=== PATIENT | female | born 1950 | race Caucasian/White ===

== ENCOUNTER 2020-08-09 11:15 | Outpatient (CLI) | payer MEDICARE, SELFPAY ==
--- NOTE | ~2020-08-09 | XR_ITS ---
XR sacrum coccyx min 2V 08/09/2020 11:49 Indication: Adjustment of neural pacemaker Procedure: 4 views of the sacrum/coccyx Comparison: No prior studies for comparison. Findings: There is a neural stimulator lead extending into the pelvis via a right transsacral approac h. There are 2 screws transfixing the sacrum and ilium bilaterally. Sacral foramen are symmetric. The re are mild degenerative changes of the hips and pubic symphysis. Impression: 1: Neural stimulator lead identified extending into the pelvis via right transsacral approach. Reviewed, dictated and finalized at location B. [employer] Impression: 1: Neural stimulator lead identified extending into the pelvis via right transs acral approach.
== END 2020-08-09 11:16 | disposition home or self-care (01) ==
PROVIDERS: Visit Provider Urology
DX: Z46.2 Encounter for fitting and adjustment of other devices related to nervous system and special senses (principal)
CPT/HCPCS: 72220

== ENCOUNTER 2020-08-27 01:57 | Outpatient (CLI) | payer MEDICARE, SELFPAY ==
[2020-08-27 19:59] LABS: SARS-CoV-2 RNA PCR Negative
== END 2020-08-27 01:58 | disposition home or self-care (01) ==
LOC: ANHCOVIDDT 01:57
PROVIDERS: Visit Provider Urology
DX: Z01.812 Encounter for preprocedural laboratory examination (principal); Z20.828 Contact with and (suspected) exposure to other viral communicable diseases
CPT/HCPCS: 87635; C9803; U0003

== ENCOUNTER 2020-08-30 02:22 | Day surgery (SDC) | payer MEDICARE, SELFPAY ==
[2020-08-23 09:36] VITALS: BMI 33.7
--- NOTE | 2020-08-27 14:30 | WPDANESEPPF ---
Anes - Initial Pre Proc Eval Procedure: Operation Date: 08/30/20 12:00 Proposed Procedures p Cystoscopy, Steroid Injection - Maurice Smith MD Date/Time: 08/27/20 14:30 Surgeon: Maurice Smith MD Pre Op Diagnosis: overactive bladder Patient Data Age: 69 Gender: F Height: 1.63 m Weight: 89 kg Allergies Allergy/AdvReac Type Severity Reaction Status Date / Time ampicillin Allergy Hives Verified 08/23/20 09:27 Home Medications Medication Instructions Recorded Confirmed Type atorvastatin 10 mg PO DAILY 08/23/20 08/23/20 History bupropion HCl 100 mg PO QAM 08/23/20 08/23/20 History famotidine 20 mg PO BID 08/23/20 08/23/20 History hydrocodone-acetaminophen 1 tablet PO Q6-8H PRN 08/23/20 08/23/20 History oxybutynin chloride 10 mg PO DAILY 08/23/20 08/23/20 History propranolol 80 mg PO BID 08/23/20 08/23/20 History rivaroxaban [Xarelto] 20 mg PO HS 08/23/20 08/23/20 History Patient hx anesthesia problems: none Family hx anesthesia problems: none PMFSH Past Medical History Medical History (Updated 08/28/20 @ 16:01 by Maurice Smith MD) Anticoagulant long-term use Anxiety CVA (cerebral vascular accident) s/p back surgery 2013, mild weakness right side Depression Hyperlipidemia Hypertension Psoriasis Scoliosis Surgical History Surgical History (Updated 08/27/20 @ 14:32 by Jann Sanches DO) History of cholecystectomy Social History Social History Smoking status: Never smoker Substance use: never Living arrangements: with family Additional living arrangements comments: Spiritual care concerns: No Anes - Eval Final PreProcedure Day of Procedure 08/27/20 14:30 Patient weight: obese Heart: regular rate and rhythm Lungs: clear to auscultation and normal air movement Airway: Mallampati scale class II Neurological: alert and oriented Last oral intake: >/= 8 hours ASA classification: III Emergent: no Anesthetic plan: proceed Anesthesia type and monitoring: general GIVS and standard monitoring Informed Consent: The patient's anesthetic plan and its attendant risks and benefits were discussed with the patient/family/POA. Questions were solicited and answers provided to the satisfaction of the patient/family/POA.
--- NOTE | 2020-08-28 15:59 | PM.IMHP ---
H&P: HPI History of Present Illness Date/Time: 08/28/20 15:59 Chief Complaint: Hunner Ulcer Narrative: Nilda Avila is a 69 year old female with Hunner ulcer Review of Systems Review of Systems: All systems reviewed & are unremarkable except as noted in HPI and below PMFSH Past Medical History Medical History (Updated 08/28/20 @ 16:01 by Maurice Smith MD) Anticoagulant long-term use Anxiety CVA (cerebral vascular accident) s/p back surgery 2013, mild weakness right side Depression Hyperlipidemia Hypertension Psoriasis Scoliosis Surgical History Surgical History (Updated 08/27/20 @ 14:32 by Jann Sanches DO) History of cholecystectomy Social History Social History Smoking status: Never smoker Substance use: never Additional living arrangements comments: Spiritual care concerns: No Meds Home Medications and Allergies Home Medications Medication Instructions Recorded Confirmed Type atorvastatin 10 mg PO DAILY 08/23/20 08/23/20 History bupropion HCl 100 mg PO QAM 08/23/20 08/23/20 History famotidine 20 mg PO BID 08/23/20 08/23/20 History hydrocodone-acetaminophen 1 tablet PO Q6-8H PRN 08/23/20 08/23/20 History oxybutynin chloride 10 mg PO DAILY 08/23/20 08/23/20 History propranolol 80 mg PO BID 08/23/20 08/23/20 History rivaroxaban [Xarelto] 20 mg PO HS 08/23/20 08/23/20 History Allergies Allergy/AdvReac Type Severity Reaction Status Date / Time ampicillin Allergy Hives Verified 08/23/20 09:27 Exam Const: General: cooperative and healthy appearing Eyes: General: appearance normal, both eyes and all related structures Neck: Neck: normal visual inspection Resp: Effort & Inspection: normal respiratory effort and able to speak in complete sentences GI: Inspection: normal to inspection Skin: General skin exam: normal color Assessment and Plan Assessment and plan (1) 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
[2020-08-30 09:57] VITALS: BP 112/68; PULSE 75; RESP 20; TEMP 36.5; O2SAT 100
--- NOTE | 2020-08-30 10:26 | WPDHPUPDATE1 ---
History and Physical Update Update Date/Time: 08/30/20 10:26 History and Physical has been reviewed, including an updated exam of the patient. There are NO changes in the patient's condition. Risks, benefits, and alternatives have been discussed and questions answered. Patient agrees to proceed with procedure.
[2020-08-30] MEDS: LACTATED RINGERS 1,000 ML 30 ML IV CONT (10:50)
[2020-08-30] MEDS: ceFAZolin 2 GM/D5W 50 ML 2 GM/50 ML BAG IVPB (11:42)
[2020-08-30] MEDS: LIDOCAINE HCL 2% GEL UROJET 10 ML PKG MUCOUS MEM (12:00)
[2020-08-30 12:05] VITALS: BP 122/62; PULSE 72; RESP 20
--- NOTE | 2020-08-30 12:05 | PM.PROC ---
Procedure Note - Detailed Date of procedure: 08/30/20 Pre-op diagnosis: overactive bladder Hunner's ulcer Post-op diagnosis: same Procedure performed: Cystoscopy with bladder biopsy and injection of steroid Description of procedure: After anesthesia was induced the patient was correctly identified and informed consent was obtained. They are placed in the dorsal lithotomy position. There prepped and draped in a sterile fashion. A time-out performed. I performed cystoscopy. There were areas of Hunner's ulceration inside the bladder. This was biopsied in generously fulgurated. I then injected Kenalog at a dose of 40 milligrams/mL. I injected 5 cc total. There was minimal bleeding from the injection sites. The bladder was examined under low insufflation pressures and there was no active bleeding. The bladder was drained. The awakened and transferred to the PACU in stable condition. Implants: None Anesthesia: MAC Surgeon: Maurice Smith MD Drains: No Packing: No Pathology: yes (Bladder biopsy) Complications: No immediate complications Condition: stable Disposition: PACU
[2020-08-30 12:30] VITALS: BP 133/73; PULSE 71; RESP 20
[2020-08-30 12:50] VITALS: BP 133/71; PULSE 69; RESP 12
== END 2020-08-30 13:06 | disposition home or self-care (01) ==
PROVIDERS: Visit Provider Urology
PROC: 3E0K8GC Introduction of Other Therapeutic Substance into Genitourinary Tract, Via Natural or Artificial Opening Endoscopic (ICD-10-PCS; CPT 52204; principal; 2020-08-30 12:00)
DX: N32.81 Overactive bladder (principal); N30.10 Interstitial cystitis (chronic) without hematuria; N30.00 Acute cystitis without hematuria; I10 Essential (primary) hypertension; E78.5 Hyperlipidemia, unspecified; L40.9 Psoriasis, unspecified; F41.8 Other specified anxiety disorders; Z79.01 Long term (current) use of anticoagulants; Z86.73 Personal history of transient ischemic attack (TIA), and cerebral infarction without residual deficits; E66.9 Obesity, unspecified; Z68.34 Body mass index [BMI] 34.0-34.9, adult
CPT/HCPCS: 52204; 52283; 88305; A9270; J0690; J2250; J2704; J3010; J3301; J7120

== ENCOUNTER → 2021-02-22 01:13 | Outpatient (CLI) | payer MEDICARE, SELFPAY ==
[2021-02-22 17:24] LABS: SARS-CoV-2 RNA PCR Negative
== END ==
PROVIDERS: Visit Provider Urology
DX: Z01.812 Encounter for preprocedural laboratory examination (principal); Z20.822 Contact with and (suspected) exposure to COVID-19
CPT/HCPCS: C9803; U0003; U0005

== ENCOUNTER 2021-02-25 00:49 | Day surgery (SDC) | payer MEDICARE, SELFPAY ==
[2021-02-15 14:05] VITALS: BMI 34.4
--- NOTE | 2021-02-19 10:21 | PM.IMHP ---
H&P: HPI History of Present Illness Date/Time: 02/19/21 10:21 70-year-old with Hunner's ulcer variety interstitial cystitis Chief Complaint: Hunner's ulcer PMFSH Past Medical History Medical History (Updated 08/28/20 @ 16:01 by Maurice Smith MD) Anticoagulant long-term use Anxiety CVA (cerebral vascular accident) s/p back surgery 2013, mild weakness right side Depression Hyperlipidemia Hypertension Psoriasis Scoliosis Surgical History Surgical History (Updated 08/27/20 @ 14:32 by Jann Sanches DO) History of cholecystectomy Social History Social History Smoking status: Never smoker Second hand tobacco smoke exposure: No Alcohol intake: former Substance use: never Substance use type: does not use Additional living arrangements comments: Spiritual care concerns: No Meds Home Medications and Allergies Home Medications Medication Instructions Recorded Confirmed Type Xarelto 20 mg PO HS 08/23/20 02/15/21 History atorvastatin 10 mg PO QAM 08/23/20 02/15/21 History propranolol 80 mg PO BID 08/23/20 02/15/21 History Bitron-C 1 tab-cap QAM 02/15/21 02/15/21 History cholecalciferol (vitamin D3) 50 mcg PO DAILY 02/15/21 02/15/21 History cholestyramine (with sugar) See Rx Instructions .ROUTE .COMPLEX 02/15/21 02/15/21 History escitalopram oxalate [Lexapro] 20 mg PO QAM 02/15/21 02/15/21 History famotidine [Pepcid] 20 mg PO BID 02/15/21 02/15/21 History multivitamin [Multi-Vitamin] 1 tablet PO DAILY 02/15/21 02/15/21 History Allergies Allergy/AdvReac Type Severity Reaction Status Date / Time ampicillin Allergy Hives Verified 08/30/20 11:30 Exam Const: General: cooperative and healthy appearing HENMT: Head: normal to inspection Eyes: General: appearance normal, both eyes and all related structures Resp: Effort & Inspection: normal respiratory effort and able to speak in complete sentences GI: Inspection: normal to inspection Back/Spine/Pelvis: Back: no CVA tenderness Assessment and Plan Assessment and plan (1) 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
--- NOTE | 2021-02-24 16:21 | WPDANESEPPF ---
Anes - Initial Pre Proc Eval Procedure: Operation Date: 02/25/21 11:30 Proposed Procedures p Cystoscopy with Steroid Injection of Hunner's Ulcer - Maurice Smith MD Date/Time: 02/24/21 16:21 Surgeon: Maurice Smith MD Pre Op Diagnosis: hunters ulcer Patient Data Age: 70 Gender: F Height: 1.63 m Weight: 90.9 kg Allergies Allergy/AdvReac Type Severity Reaction Status Date / Time ampicillin Allergy Hives Verified 02/25/21 10:00 Home Medications Medication Instructions Recorded Confirmed Type Xarelto 20 mg PO HS 08/23/20 02/25/21 History atorvastatin 10 mg PO QAM 08/23/20 02/25/21 History propranolol 80 mg PO BID 08/23/20 02/25/21 History Bitron-C 1 tab-cap QAM 02/15/21 02/25/21 History cholecalciferol (vitamin D3) 50 mcg PO DAILY 02/15/21 02/25/21 History cholestyramine (with sugar) See Rx Instructions .ROUTE .COMPLEX 02/15/21 02/25/21 History escitalopram oxalate [Lexapro] 20 mg PO QAM 02/15/21 02/25/21 History famotidine [Pepcid] 20 mg PO BID 02/15/21 02/25/21 History multivitamin [Multi-Vitamin] 1 tablet PO DAILY 02/15/21 02/25/21 History Patient hx anesthesia problems: none Family hx anesthesia problems: none PMFSH Past Medical History Medical History (Updated 08/28/20 @ 16:01 by Maurice Smith MD) Anticoagulant long-term use Anxiety CVA (cerebral vascular accident) s/p back surgery 2013, mild weakness right side Depression Hyperlipidemia Hypertension Psoriasis Scoliosis Surgical History Surgical History (Updated 08/27/20 @ 14:32 by Jann Sanches DO) History of cholecystectomy Social History Social History Smoking status: Never smoker Second hand tobacco smoke exposure: No Alcohol intake: former Alcohol use details: STOPPED AT AGE 20 Substance use: never Substance use type: does not use Living arrangements: with family Additional living arrangements comments: Spiritual care concerns: No Anes - Eval Final PreProcedure Day of Procedure 02/24/21 16:21 Patient weight: obese Heart: regular rate and rhythm Lungs: clear to auscultation and normal air movement Airway: Mallampati scale class II Neurological: alert and oriented Last oral intake: >/= 8 hours ASA classification: III Emergent: no Anesthetic plan: proceed Anesthesia type and monitoring: general LMA Informed Consent: The patient's anesthetic plan and its attendant risks and benefits were discussed with the patient/family/POA. Questions were solicited and answers provided to the satisfaction of the patient/family/POA.
--- NOTE | 2021-02-25 07:17 | WPDHPUPDATE1 ---
History and Physical Update Update Date/Time: 02/25/21 07:17 History and Physical has been reviewed, including an updated exam of the patient. There are NO changes in the patient's condition. Risks, benefits, and alternatives have been discussed and questions answered. Patient agrees to proceed with procedure.
[2021-02-25 09:37] VITALS: BP 161/86; PULSE 66; RESP 18; TEMP 36.3; O2SAT 100
[2021-02-25] MEDS: LACTATED RINGERS 1,000 ML 30 ML IV CONT (09:54)
--- NOTE | 2021-02-25 11:49 | SUR.PREOP ---
UPDATED ON SURGERY TIME DELAY.
[2021-02-25] MEDS: levoFLOXacin 500 MG/D5W 100 ML 500 MG/100 ML BAG 100 MG IVPB (12:02)
[2021-02-25] MEDS: LIDOCAINE HCL 2% GEL UROJET 10 ML PKG MUCOUS MEM (12:11)
[2021-02-25] MEDS: TRIAMCINOLONE ACET INJ 40 MG/ML VIAL 200 MG XX (12:12)
--- NOTE | 2021-02-25 12:22 | W.PM.PROC2 ---
Procedure Note - Detailed Date of Procedure 02/25/21 Pre-op Diagnosis Hunner ulcer Post-op Diagnosis same Procedure Performed Cystoscopy, biopsy, steroid injection Surgeon Maurice Smith MD Anesthesia MAC Indications This is a woman with recurrent Hunner's ulcer for ID interstitial cystitis Findings 3 areas of Hunner's ulceration. The 1 on the posterior wall. One on each sidewall Description of Procedure She was correctly identified. Informed consent obtained. She from the operating room. She was given mac anesthesia. She was placed in dorsal lithotomy position. She was prepped draped sterile fashion. Time-out performed. I performed cystoscopy. She had 3 areas of Hunner's ulceration. There on the right lateral wall, left lateral wall and posterior wall. I biopsied 1 of these areas. I then generously fulgurated all lesions. I then injected 200 mg of Kenalog into the ulcerated areas. There is minimal bleeding from the injection sites. I read fulgurated to obtain hemostasis. I examined the bladder under low insufflation pressures. There is no bleeding. She was awakened and transferred to PACU in stable condition. Estimated Blood Loss 1 Drains No Packing No Pathology none sent (Bladder biopsy please count you eosinophils) Complications No immediate complications Condition stable Disposition PACU
[2021-02-25 12:28] VITALS: BP 111/65; PULSE 76; RESP 16; O2SAT 98
[2021-02-25] MEDS: fentaNYL CITRATE INJ (*CRX) 100 MCG/2 ML VIAL 25 MCG IV PUSH ×2 (12:49→13:04)
[2021-02-25 13:00] VITALS: BP 134/71; PULSE 74; O2SAT 93
[2021-02-25 13:30] VITALS: BP 157/81; PULSE 66
[2021-02-25] MEDS: oxyCODONE HCL (*CRX) 5 MG TAB IR PO (13:38)
[2021-02-25 14:00] VITALS: BP 136/73; PULSE 59
== END 2021-02-25 14:10 | disposition home or self-care (01) ==
PROVIDERS: Visit Provider Urology
PROC: 3E0K8GC Introduction of Other Therapeutic Substance into Genitourinary Tract, Via Natural or Artificial Opening Endoscopic (ICD-10-PCS; CPT 52204; principal; 2021-02-25 11:30)
DX: N30.10 Interstitial cystitis (chronic) without hematuria (principal); I10 Essential (primary) hypertension; E78.5 Hyperlipidemia, unspecified; F41.8 Other specified anxiety disorders; L40.9 Psoriasis, unspecified; I69.351 Hemiplegia and hemiparesis following cerebral infarction affecting right dominant side; Z79.01 Long term (current) use of anticoagulants; Z87.891 Personal history of nicotine dependence; E66.9 Obesity, unspecified; Z68.34 Body mass index [BMI] 34.0-34.9, adult
CPT/HCPCS: 52204; 52283; 88305; A9270; J0690; J1100; J1956; J2405; J2704; J3010; J3301; J7120